=== PATIENT | female | born 1980 | race Two or more races ===

== ENCOUNTER 2019-11-11 22:40 | Emergency (ER) | payer MEDICAID, OTHER ==
[~2019-11-11] VITALS: Ht 162.6 cm; Wt 77.3 kg
[~2019-11-11 22:40] MED LIST: CITA20TA9 PO; ELVI1TAB2 PO; HYDR25TA PO; RANI150C PO
[2019-11-11 22:53] VITALS: BP 174/104
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
--- NOTE | 2019-11-12 00:26 | RAD ---
EXAM: CT head without contrast INDICATION: Headache, recently diagnosed with brain tumor. COMPARISON: None TECHNIQUE: Axial CT imaging through the head without intravenous contrast. Sagittal and coronal reformats were obtained. One or more of the following individualized dose reduction techniques were utilized for this examination: 1. Automated exposure control 2. Adjustment of the mA and/or kV according to patient size 3. Use of iterative reconstruction technique. FINDINGS: There is a 2.4 x 2.3 cm hyperdense mass in the suprasellar cistern. There is expansion of the sella. There is no intracranial hemorrhage or acute infarct. The ventricles and sulci are normal. No midline shift. No acute fracture. Paranasal sinuses and mastoid air cells are clear. Globes and orbits are intact. IMPRESSION: 2.4 x 2.3 cm sellar/suprasellar mass. Differential diagnosis includes pituitary macroadenoma, meningioma, or less likely aneurysm. Results discussed by Dr. Daryl Noel ay 12:14 AM on 11/12/2019 FOR INTERNAL CODING PURPOSES Critical result: Findings discussed with SOLANGE NOEL at 11/12/2019 12:14 AM. RESULT CODE: (C) Electronically signed by: Shauna Brito MD (11/12/2019 12:23 AM) [id number]
== END 2019-11-12 01:30 | disposition home or self-care (01) ==
LOC: ER 22:40
DX: G93.89 Other specified disorders of brain (principal); R22.0 Localized swelling, mass and lump, head; F41.9 Anxiety disorder, unspecified; F32.9 Major depressive disorder, single episode, unspecified; K21.9 Gastro-esophageal reflux disease without esophagitis
CPT/HCPCS: 70450; 99284